=== PATIENT | male | born 1990 | race African-American/Black ===

== ENCOUNTER 2025-07-25 17:17 | Emergency (ER) | payer MEDICAID, OTHER ==
[~2025-07-25] VITALS: Ht 175.3 cm; Wt 91.0 kg
[2025-07-25 17:27] VITALS: O2SAT 96
[2025-07-25 17:40] LABS: BASOPHILS % 0.6 % (0.0-2.0); EOSINOPHILS % 7.5 % (0.0-5.0); HEMATOCRIT. 36.2 % (42.0-52.0); HEMOGLOBIN. 12.2 g/dL (14.0-18.0); LYMPHOCYTES % 18.9 % (20.0-50.0); MEAN PLATELET VOLUME 7.8 fl (7.4-10.4); MONOCYTES % 12.4 % (2.0-8.0); NEUTROPHILS % 60.6 % (40.0-76.0); PLATELET 340 x1000/uL (130-400); RED BLOOD CELL COUNT 4.19 mill/uL (4.7-6.1); RED CELL DISTRIBUTION WIDTH 13.3 % (11.6-14.6)
[2025-07-25 17:45] LABS: CLARITY URINE CLEAR (CLEAR); COLOR URINE YELLOW (YELLOW); GLUCOSE URINE NEGATIVE (NEGATIVE); KETONES URINE 1+ (NEGATIVE); LEUKOCYTE ESTERASE URINE NEGATIVE (NEGATIVE); NITRITE URINE NEGATIVE (NEGATIVE); OCCULT BLOOD URINE 2+ (NEGATIVE); PH URINE 5.5 (4.5-8.0); PROTEIN URINE 1+ (NEGATIVE); SPECIFIC GRAVITY URINE 1.032 (1.005-1.030); UROBILINOGEN URINE 1.0 E.U./dL (0.2-1.0)
[2025-07-25 17:48] LABS: BACTERIA URINE TRACE; SQUAMOUS EPITHELIAL CELL URINE RARE /lpf (RARE/1+); WBC URINE 0-2 /hpf (0-2)
[2025-07-25 17:56] LABS: CREATININE 1.0 mg/dL (0.6-1.3); UREA NITROGEN BLOOD 8 mg/dL (9-23)
[2025-07-25 17:58] LABS: BILIRUBIN DIRECT 0.2 mg/dL (<=3.0); BILIRUBIN TOTAL 0.6 mg/dL (0.1-1.0); PROTEIN TOTAL 7.3 g/dL (6.0-8.3)
[2025-07-25 17:59] LABS: ASPARTATE AMINOTRANSFERASE < 8 IU/L (<34)
[2025-07-25] MEDS: MORPHINE SULFATE 4 MG/ML INJ (FOR IV/IM USE) IV ONE (18:59)
[2025-07-25] MEDS: SODIUM CHLORIDE 0.9% 1,000 ML IV ONE (18:59)
[2025-07-25] MEDS: ONDANSETRON HCL 4MG/2ML INJ IV ONE (19:00)
[2025-07-25 20:41] VITALS: BP 123/80; PULSE 80; RESP 14; TEMP 36.7; O2SAT 98
[2025-07-25] MEDS ORDERED: IOHEXOL-300 100 ML BOTTLE ONE (21:35)
[2025-07-25] MEDS ORDERED: PIPERACILLIN/TAZO 3.375G/50ML 50 ML IV SCH (22:00)
== END 2025-07-25 21:24 | disposition short-term general hospital (02) ==
LOC: ER 17:17 → CMPBEDREQ 07-26 09:55
DX: K50.10 Crohn's disease of large intestine without complications (principal); K52.89 Other specified noninfective gastroenteritis and colitis; J45.909 Unspecified asthma, uncomplicated
CPT/HCPCS: 99285; 74177; 96374; 96361; 96375; 80076; 80048; 81003; 83690; 85025; 36415; Q9967; J2405; J2270; J7030; 85651